=== PATIENT | male | born 1930 | race American Indian/Alaskan Native ===

== ENCOUNTER 2017-07-17 11:55 | Emergency (ER) | payer MEDICARE ==
[2017-07-17 13:07] LABS: Eosinophils % (Auto) 1.7 % (0.0-4.3); Hematocrit 34.6 % (35.5-45.6); Hemoglobin 11.8 gm/dl (11.8-15.2); Mean Corpuscular HGB Conc 34 % (32-34); Mean Corpuscular Hemoglobin 30 pg (28-32); Mean Corpuscular Volume 88 fl (84-94); Platelet Count 222 K/mm3 (140-440); Red Blood Count 3.92 M/mm3 (3.65-5.03); Red Cell Distribution Width 14.3 % (13.2-15.2); White Blood Count 10.6 K/mm3 (4.5-11.0)
[2017-07-17] MEDS ORDERED: TORADOL IV ONE (13:15)
--- NOTE | 2017-07-17 13:26 | Emergency Department Report ---
ED Abdominal Pain HPI - General Chief Complaint: Abdominal Pain Stated Complaint: ABD PAIN Time Seen by Provider: 07/17/17 12:53 Source: patient Mode of arrival: Ambulatory Limitations: No Limitations - History of Present Illness Initial Comments: 86-year-old male with a past medical history hypertension, prostatectomy, and unknown right lower lung surgery presents to the hospital with complains of abdominal pain 2 weeks. Pain is in the lower abdomen, constant, and aching. Worse with palpation. Pain moderate in intensity. No alleviating factors. Patient feels like he is constipated. Last normal was yesterday but patient has taken multiple laxities without significant relief. No nausea, vomiting, diarrhea, melena, hematochezia, or fever. - Related Data Home Medications Medication Instructions Recorded Confirmed Last Taken Amlodipine Besylate [Norvasc] 2.5 mg PO QHS 07/17/17 07/17/17 Unknown AtorvaSTATin [Lipitor] 80 mg PO QHS 07/17/17 07/17/17 Unknown Bimatoprost 0.01%(Nf) [Lumigan 1 drop OTIC QHS 07/17/17 07/17/17 Unknown 0.01%(Nf)] Brimonidine Tartrate/Timolol 1 drop OTIC BID 07/17/17 07/17/17 Unknown [Combigan 0.2%-0.5% Eye Drops] Budesoni/Formotero 160-4.5(Nf) 2 puff INHALATION BID 07/17/17 07/17/17 Unknown [Symbicort 160-4.5 (Nf)] Ciprofloxacin HCl [Ciprofloxacin 250 mg PO BID 07/17/17 07/17/17 Unknown TAB] Febuxostat [Uloric] 80 mg PO DAILY 07/17/17 07/17/17 Unknown Furosemide [Lasix TAB] 20 mg PO DAILY 07/17/17 07/17/17 Unknown Hyoscyamine Subl [Levsin Sl 0.125 0.125 mg SL Q6HR PRN 07/17/17 07/17/17 Unknown TAB] Losartan [Cozaar] 100 mg PO DAILY 07/17/17 07/17/17 Unknown Metoprolol Succinate 100 mg PO DAILY 07/17/17 07/17/17 Unknown metroNIDAZOLE [Flagyl TAB] 500 mg PO BID 07/17/17 07/17/17 Unknown Allergies Allergy/AdvReac Type Severity Reaction Status Date / Time No Known Allergies Allergy Verified 07/17/17 15:26 ED Review of Systems ROS: Stated complaint: ABD PAIN Other details as noted in HPI Comment: All other systems reviewed and negative Other: Constitutional: No fevers chills Eyes: No eye pain visual changes ENT: No ear pain or throat pain Neck: Denies pain Respiratory: Denies cough wheezing shortness of breath Cardiovascular: Denies chest pain, palpitations, syncope GI: As per HPI : Denies dysuria Musculoskeletal: Denies back pain, joint swelling Skin: Denies rash, lesions, erythema Neurologic: Denies headache, numbness, weakness Psychiatric: Denies suicidal ideation, hallucinations ED Past Medical Hx - Past Medical History Previous Medical History?: Yes Hx Hypertension: Yes - Surgical History Past Surgical History?: Yes Additional Surgical History: Prostate. Lung ? - Social History Smoking Status: Never Smoker Substance Use Type: None - Medications Home Medications: Home Medications Medication Instructions Recorded Confirmed Last Taken Type Amlodipine Besylate [Norvasc] 2.5 mg PO QHS 07/17/17 07/17/17 Unknown History AtorvaSTATin [Lipitor] 80 mg PO QHS 07/17/17 07/17/17 Unknown History Bimatoprost 0.01%(Nf) [Lumigan 1 drop OTIC QHS 07/17/17 07/17/17 Unknown History 0.01%(Nf)] Brimonidine Tartrate/Timolol 1 drop OTIC BID 07/17/17 07/17/17 Unknown History [Combigan 0.2%-0.5% Eye Drops] Budesoni/Formotero 160-4.5(Nf) 2 puff INHALATION BID 07/17/17 07/17/17 Unknown History [Symbicort 160-4.5 (Nf)] Ciprofloxacin HCl [Ciprofloxacin 250 mg PO BID 07/17/17 07/17/17 Unknown History TAB] Febuxostat [Uloric] 80 mg PO DAILY 07/17/17 07/17/17 Unknown History Furosemide [Lasix TAB] 20 mg PO DAILY 07/17/17 07/17/17 Unknown History Hyoscyamine Subl [Levsin Sl 0.125 0.125 mg SL Q6HR PRN 07/17/17 07/17/17 Unknown History TAB] Losartan [Cozaar] 100 mg PO DAILY 07/17/17 07/17/17 Unknown History Metoprolol Succinate 100 mg PO DAILY 07/17/17 07/17/17 Unknown History metroNIDAZOLE [Flagyl TAB] 500 mg PO BID 07/17/17 07/17/17 Unknown History ED Physical Exam - General Limitations: No Limitations - Other Other exam information: General: No limitations, patient is alert in no acute distress Head exam: Atraumatic, normocephalic Eyes exam: Normal appearance, pupils equal reactive to light, extraocular movements intact ENT: Moist mucous membrane, normal oropharynx Neck exam: Normal inspection, full range of motion, no meningismus nontender Respiratory exam: Clear to auscultation bilateral, no wheezes, rales, crackles Cardiovascular: Normal rate and rhythm, normal heart sounds Abdomen: Soft, nondistended, suprapubic tenderness, large vertical scar from umbilicus to the suprapubic area, with normal bowel sounds, no rebound, or guarding Extremity: Full range of motion normal inspection no deformity Back: Normal Inspection, full range of motion, no tenderness Neurologic: Alert, oriented x3, cranial nerves intact, no motor or sensory deficit Psychiatric: normal affect, normal mood Skin: Warm, dry, intact Patient reexamined after CT result. Left sided. Surgical hernia is easily reducible without pain or discomfort. ED Course Vital Signs 07/17/17 07/17/17 07/17/17 12:08 13:00 13:45 Temperature 98.3 F Pulse Rate 63 61 Respiratory 22 16 16 Rate Blood Pressure 158/77 Blood Pressure 175/77 [Left] O2 Sat by Pulse 100 99 99 Oximetry 07/17/17 16:15 Temperature Pulse Rate 66 Respiratory 16 Rate Blood Pressure Blood Pressure 187/76 [Left] O2 Sat by Pulse 100 Oximetry - Reevaluation(s) Reevaluation #1: 07/17/17 18:31 Patient stable in the ED without any distress - Consultations Consultation #1: 07/17/17 18:26 case d/w Dr. Keller, agrees nonsurgical case since hernia reducible and no signs of obstruction case d/w Dr De Santiago nephrology, suggests outpatient follow up ED Medical Decision Making - Lab Data Result diagrams: 07/17/17 12:59 07/17/17 12:55 Lab Results 07/17/17 07/17/17 07/17/17 Range/Units 12:52 12:55 12:59 WBC 10.6 (4.5-11.0) K/mm3 RBC 3.92 (3.65-5.03) M/mm3 Hgb 11.8 (11.8-15.2) gm/dl Hct 34.6 L (35.5-45.6) % MCV 88 (84-94) fl MCH 30 (28-32) pg MCHC 34 (32-34) % RDW 14.3 (13.2-15.2) % Plt Count 222 (140-440) K/mm3 Lymph % (Auto) 12.3 L (13.4-35.0) % Sevier % (Auto) 8.2 H (0.0-7.3) % Eos % (Auto) 1.7 (0.0-4.3) % Baso % (Auto) 1.0 (0.0-1.8) % Lymph # 1.3 (1.2-5.4) K/mm3 Sevier # 0.9 H (0.0-0.8) K/mm3 Eos # 0.2 (0.0-0.4) K/mm3 Baso # 0.1 (0.0-0.1) K/mm3 Seg Neutrophils % 76.8 H (40.0-70.0) % Seg Neutrophils # 8.1 H (1.8-7.7) K/mm3 Sodium 135 L (137-145) mmol/L Potassium 3.7 (3.6-5.0) mmol/L Chloride 97.3 L (98-107) mmol/L Carbon Dioxide 23 (22-30) mmol/L Anion Gap 18 mmol/L BUN 38 H (9-20) mg/dL Creatinine 3.6 H (0.8-1.5) mg/dL Estimated GFR 19 ml/min BUN/Creatinine Ratio 10.55 % Glucose 110 H (75-100) mg/dL Calcium 8.8 (8.4-10.2) mg/dL Total Bilirubin 0.60 (0.1-1.2) mg/dL AST 17 (5-40) units/L ALT 26 (7-56) units/L Alkaline Phosphatase 106 (35-129) units/L Total Protein 6.6 (6.3-8.2) g/dL Albumin 3.2 L (3.9-5) g/dL Albumin/Globulin Ratio 0.9 % Lipase 18 (13-60) units/L Urine Color Yellow (Yellow) Urine Turbidity Clear (Clear) Urine pH 5.0 (5.0-7.0) Ur Specific Withams 1.017 (1.003-1.030) Urine Protein >500 (Negative) mg/dL Urine Glucose (UA) Neg (Negative) mg/dL Urine Ketones Neg (Negative) mg/dL Urine Blood Sm (Negative) Urine Nitrite Neg (Negative) Urine Bilirubin Neg (Negative) Urine Urobilinogen < 2.0 (<2.0) mg/dL Ur Leukocyte Esterase Sm (Negative) Urine WBC (Auto) 2.0 (0.0-6.0) /HPF Urine RBC (Auto) 6.0 (0.0-6.0) /HPF U Epithel Cells (Auto) < 1.0 (0-13.0) /HPF Hyaline Casts 1 /LPF - Radiology Data Radiology results: report reviewed CT abdomen and pelvis by mouth contrast only: Small anterior abdominal wall hernia contents short segment of bowel may be causing a partial bowel obstruction. Mild wall thickening of the splenic flexure of colon which may be essentially metabolic of contrast. Nonobstructive right renal calculi - Medical Decision Making Plan to discharge patient home. Positive reduce the hernia without CT reading of significant obstruction. Partial bowel structures and suggested however, patient does not have any symptoms of partial small bowel obstruction and has a reducible hernia. We'll recommend to avoid further NSAIDs given renal insufficiency. Baseline creatinine is unknown. Case discussed with surgery and nephrology and outpatient follow-up is appropriate. - Differential Diagnosis constipation, obstruction, cancer, appendicitis, diverticulitis, Critical Care Time: No Critical care attestation.: If time is entered above; I have spent that time in minutes in the direct care of this critically ill patient, excluding procedure time. ED Disposition Clinical Impression: Ventral incisional hernia, Renal insufficiency Disposition: TO HOME OR SELFCARE Is pt being admited?: No Does the pt Need Aspirin: No Condition: Stable Instructions: Ventral Hernia (ED), Impaired Kidney Function (ED) Additional Instructions: Take Tylenol as needed for pain. It is very important that he follow-up with the kidney specialist provided for further evaluation and monitoring of your kidney function. Follow-up on [facility]. Avoid NSAIDs such as aspirin, Aleve, Motrin/ibuprofen because these may worsen kidney function. Referrals: INGRID CESPEDES MD [Staff Physician] - 07/19/17 ([employer] Officer/ kidney specialist) Time of Disposition: 18:35
[2017-07-17 13:28] LABS: Albumin 3.2 g/dL (3.9-5); Albumin/Globulin Ratio 0.9 %; BUN/Creatinine Ratio 10.55; Bilirubin,Total 0.6 mg/dL (0.1-1.2); Calcium 8.8 mg/dL (8.4-10.2); Chloride 97.3 mmol/L (98-107); Potassium 3.7 mmol/L (3.6-5.0); Total Protein 6.6 g/dL (6.3-8.2)
[2017-07-17 14:20] LABS: Bilirubin,Urine NEG (Negative); Blood,Urine SM (Negative); Ketones,Urine NEG (Negative); Leukocyte Esterase,Urine SM (Negative); Nitrite,Urine NEG (Negative); Urobilinogen,Urine < 2.0 mg/dL (<2.0)
[2017-07-17 14:28] LABS: Protein,Urine >500 mg/dL (Negative)
[2017-07-17] MEDS ORDERED: TORADOL ONE (15:24)
--- NOTE | 2017-07-17 16:39 | Cat Scan Report ---
FINAL REPORT PROCEDURE: CT ABDOMEN PELVIS WO CON TECHNIQUE: Computerized axial tomography of the abdomen and pelvis was performed without intravenous contrast. This study is performed without intravascular contrast material and its sensitivity for abdominal and pelvic pathology, including neoplasms, inflammation, abscess, free fluid, thrombosis, arterial dissection and infarction, is reduced compared with a contrast enhanced study. HISTORY: lower abd pain, constipation, previous abd sx COMPARISON: No prior studies are available for comparison. FINDINGS: Visualized lower thorax: Patchy bibasilar atelectasis. Liver: Normal size and attenuation. Spleen: Normal size and attenuation. Gallbladder and biliary system: Gallbladder is present. No biliary ductal dilatation is identified. Pancreas: Normal. Adrenals: Normal. Kidneys: There are 2 nonobstructive right renal calculi. Larger in the midpole measures 7 millimeters. No hydronephrosis bilaterally. No ureteral calculi are seen. GI tract: The appendix is not diagnostically visualized. Oral contrast transits to the proximal sigmoid colon. There is mild wall thickening of the splenic flexure, which may be related to lack of distention. There is an anterior abdominal wall hernia, just to the left of the umbilicus, which contains a short segment ofsmall bowel. Hernia neck measures 3 centimeters transverse. Proximal small bowel loops measure up to 3.4 centimeters in caliber. This may be causing partial obstruction. No inflammatory changes are seen. Lymph nodes and mesentery: Normal. Vasculature: Aortic and mesenteric artery calcification is noted. Bladder: Normal. Reproductive organs: Prostate gland is not visualized. Peritoneum: No free fluid. Musculoskeletal structures: Significant lumbar spine degenerative changes. Other: None. IMPRESSION: There is a small anterior abdominal wall hernia which contains a short segment of small bowel. This may be causing a mild partial small bowel obstruction. Mild wall thickening of the splenic flexure of the colon, which may be accentuated by lack of distention. Nonobstructive right renal calculi
[2017-07-17] MEDS ORDERED: BENTYL IM ONE (18:47)
[2017-07-17] MEDS ORDERED: TYLENOL PO ONE (18:47)
[2017-07-17 20:05] VITALS: BP 196/71
== END 2017-07-17 20:00 | disposition home or self-care (01) ==
LOC: ED 11:55
DX: K43.2 Incisional hernia without obstruction or gangrene (principal); N28.9 Disorder of kidney and ureter, unspecified; I10 Essential (primary) hypertension
CPT/HCPCS: 36415; 74176; 80053; 81001; 83690; 85025; 96372; 96374; 99284; J0500; J1885